=== PATIENT | female | born 1950 | race Caucasian/White ===

== ENCOUNTER → 2017-05-28 | Outpatient (CLI) | payer BC ==
--- NOTE | 2017-05-28 16:04 | RAD ---
Cervical spine radiographs 05/28/2017 at 1056 hours Indication: Chronic neck pain on the left side Comparison: None available Technique: Lateral, swimmers view, odontoid view and AP view of the cervical spine are provided. Findings: Cervical spine is visualized from the craniocervical junction through the cervicothoracic junction. There is minimal kyphosis at C5-C6. There is disc space narrowing at C5-C6 and C6-C7. Moderate facet arthropathy is identified at C3-C4, C4-C5 and C5-C6. The lateral masses of C1 articulate appropriately with the C2 vertebral body. No acute fracture is identified. There is moderate uncovertebral joint arthropathy at C3-C4, C4-C5 and C5-C6 and C6-C7. Impression: Moderate degenerative changes of the cervical spine, as above. No acute fracture.
== END | disposition home or self-care (01) ==
LOC: RAD 10:40
PROVIDERS: ATTEND Family Medicine
DX: M47.892 Other spondylosis, cervical region (principal); M40.292 Other kyphosis, cervical region; M48.02 Spinal stenosis, cervical region; M12.88 Other specific arthropathies, not elsewhere classified, other specified site; G89.29 Other chronic pain
CPT/HCPCS: 72040

== ENCOUNTER → 2017-06-04 | Outpatient (CLI) | payer BC ==
--- NOTE | 2017-06-04 09:19 | KCIC ---
MRI Cervical Spine Without Contrast History: Cervicalgia, left shoulder pain for 6 weeks Technique: Multiplanar, multi sequential noncontrast MR imaging was performed of the cervical spine. Comparison: None Findings: There is some motion degradation, limits accurate evaluation of the neural foramina. Cervical vertebral body stature is adequate. Cervical cord caliber is within normal limits without significant focal signal abnormality. There is very mild grade 1 anterior spondylolisthesis at C4-5 and C7-T1. There is moderate degenerative disc disease C6-7. There is narrowing of the C5-C6 intervertebral disc space likely on a developmental basis. There is also mild/moderate degenerative disc disease at T1-T2, minimally at C7-T1. There is no significant abnormality of the cervical medullary junction. There is 0.9 cm focus of round signal change in region adenoids, may be due to a complex cyst although small mass difficult to exclude. C2-C3: Spinal canal and left neural foramina are adequate, minimal narrowing of the right neural foramen due to facet degenerative change. C3-C4: There is very minimal disc osteophyte complex. Central canal is borderline 10 mm, minimal narrowing of the lateral recesses bilaterally. There is bilateral uncovertebral degenerative change, also moderate to severe facet degenerative change greater on the right. There is moderate to severe neural foramina compromise bilaterally. C4-C5: There is fairly severe right and moderate left facet hypertrophic change. Central canal is adequate 11 mm. There is suspected moderate to severe neural foramina compromise bilaterally. C5-C6: Spinal canal and right neural foramen are adequate, minimal narrowing of the left neural foramen by facet and uncovertebral degenerative change. C6-C7: There is a broad posterior disc osteophyte complex and bulge, also more central extrusion extending below the intervertebral disc space centrally. There is indentation upon the ventral thecal sac, central canal narrowed to 7 mm with effacement of ventral subarachnoid space and contact of the ventral cord. There is bilateral uncovertebral degenerative change. There is mild facet degenerative change. There is fairly severe narrowing of the left neural foramen, also moderate to severe narrowing on the right. C7-T1: Spinal canal is adequate. There is facet degenerative change. There is overall mild narrowing of the left neural foramen from posteriorly, right neural foramen not significantly narrowed. T1-2: This level was not included on the axial images. There is a posterior protrusion, mild narrowing of the central canal to 9 mm. There is more significant narrowing of the left neural foramen due to facet and uncovertebral degenerative change, also likely shallow protrusion. There is moderate to severe narrowing of the right neural foramen. Impression: 1. There is spinal stenosis to 7 mm at C6-7 with contact of the ventral cord. There is mild spinal stenosis T1-2. 2. There is multilevel cervical neural foramina compromise in part due to facet and uncovertebral degenerative change, more significant narrowing bilaterally at C3-4, C4-5, C6-7, and T1-T2. 3. There is moderate degenerative disc disease C6-7. There is narrowing of the C5-C6 intervertebral disc space likely on a developmental basis. 4. There is a small likely complex cyst in the region of adenoids, small mass considered less likely. Electronically signed by: Juan A Grande MD (06/04/2017 9:15 AM) [email or web address]
== END | disposition home or self-care (01) ==
LOC: KCIC MRI 08:29
PROVIDERS: ATTEND Family Medicine
DX: M48.02 Spinal stenosis, cervical region (principal); M50.323 Other cervical disc degeneration at C6-C7 level; M50.322 Other cervical disc degeneration at C5-C6 level; M50.321 Other cervical disc degeneration at C4-C5 level
CPT/HCPCS: 72141

== ENCOUNTER → 2017-11-16 | Outpatient (CLI) | payer BC | END | disposition home or self-care (01) | LOC: MAMMO 08:26 | DX: Z12.31 Encounter for screening mammogram for malignant neoplasm of breast (principal) | CPT/HCPCS: 77067 ==

== ENCOUNTER → 2018-09-30 | Outpatient (CLI) | payer BC ==
--- NOTE | 2018-09-30 16:33 | KCIC ---
MR of the musculoskeletal pelvis HISTORY: Pulling in hip when climbing stairs. Unsteady gait. Patient fell last August. Right side burning and swelling. Piriformis syndrome. TECHNIQUE: Routine multiplanar sequences are obtained. FINDINGS: The piriformis muscles are symmetric bilaterally. No obvious mass effect. Visualized sciatic nerve is symmetric bilaterally without abnormal signal. No abnormal fluid collection, or soft tissue edema. No bone lesion, marrow edema or acute fracture. The hip joints demonstrate no significant effusion or advanced degenerative change. No para labral cyst. Pubic symphysis mild degenerative spurring. Sacroiliac joints intact. Mild edema signal surrounding the gluteus medius minimus and medius tendon insertions bilaterally without high-grade tear. Hamstring tendinosis, greater on the left, mild. Rectus femoris as arthritis tendon attachments are intact. Muscle tissue intact. IMPRESSION: 1. No acute abnormality identified. 2. The piriformis muscles appear symmetric bilaterally. Electronically signed by: Anant Elder MD (09/30/2018 4:29 PM) [id number]
--- NOTE | 2018-09-30 16:59 | KCIC ---
Right lower extremity venous doppler ultrasound History: Right leg swelling Comparison: None Findings: Multiple grayscale, color, and duplex spectral analysis sonographic images were acquired of the right lower extremity veins to evaluate for the presence of DVT. There is normal phasicity. Normal compression, color-flow, and augmentation is demonstrated from the right common femoral to the popliteal veins. There is normal color flow of the proximal greater saphenous and profunda femoris veins. Right calf veins are poorly visualized due to patient's body habitus. Impression: 1. There is no evidence of deep venous thrombosis from the right common femoral to popliteal veins. Electronically signed by: Juan A Grande MD (09/30/2018 4:56 PM) [email or web address]
== END | disposition home or self-care (01) ==
LOC: KCIC MRI 14:24
PROVIDERS: ATTEND Psychiatry & Neurology Neurology with Special Qualifications in Child Neurology
DX: G57.01 Lesion of sciatic nerve, right lower limb (principal); R60.0 Localized edema
CPT/HCPCS: 72195; 93971

== ENCOUNTER → 2018-12-29 | Outpatient (CLI) | payer BC ==
--- NOTE | 2018-12-29 12:41 | RAD ---
DATE: 12/29/2018 EXAM: MAMMO CORRINE SCREENING BILATERAL HISTORY: Routine screening COMPARISON: 11/16/2017 This study was interpreted with the benefit of Computerized Aided Detection (CAD). Breast Density: FATTY The breast parenchyma is primarily fatty replaced. Breast parenchyma level density A. FINDINGS: 2-D and 3-D tomosynthesis imaging was performed in CC and MLO projections. No new or enlarging breast densities are seen. Scattered benign type calcifications are present. No suspicious microcalcifications have developed. IMPRESSION: Stable mammograms without evidence of malignancy. BI-RADS CATEGORY: 2 BENIGN FINDING(S) RECOMMENDED FOLLOW-UP: 12M 12 MONTH FOLLOW-UP PQRS compliance statement: Patient information was entered into a reminder system with a target due date for the next mammogram. Mammography is a sensitive method for finding small breast cancers, but it does not detect them all and is not a substitute for careful clinical examination. A negative mammogram does not negate a clinically suspicious finding and should not result in delay in biopsying a clinically suspicious abnormality. "Our facility is accredited by the [employer] Mammography Program."
== END | disposition home or self-care (01) ==
LOC: MAMMO 08:50
PROVIDERS: ATTEND Family Medicine
DX: Z12.31 Encounter for screening mammogram for malignant neoplasm of breast (principal)
CPT/HCPCS: 77063; 77067

== ENCOUNTER → 2021-04-30 | Outpatient (CLI) | payer BC, MEDICARE ==
--- NOTE | 2021-04-30 10:03 | RAD ---
PROCEDURE: MG BILAT SCREEN+CORRINE HISTORY: The patient is 70 years old and is seen for Reason: SCREENING MAMMOGRAM / Spl. Instructions: / History: . COMPARISON: December 29, 2018 TECHNIQUE: CC and MLO views of both breasts were obtained. Images were processed by the [employer] computer-aided detection system. DENSITY: There are scattered fibroglandular densities. FINDINGS: No developing mass, suspicious calcifications or architectural distortion. IMPRESSION: Negative. No evidence of malignancy. Recommend annual screening mammograms per [employer] guidelines. She will be due in one year. BI-RADS category 1 Negative Patient entered into a reminder system for annual screening mammogram. Electronically signed by: Owen Lucas DO (04/30/2021 10:01 AM) [id number]
== END ==
LOC: MAMMO 09:23
PROVIDERS: ATTEND Family Medicine
DX: Z12.31 Encounter for screening mammogram for malignant neoplasm of breast (principal)
CPT/HCPCS: 77063; 77067